=== PATIENT | male | born 1990 ===

== ENCOUNTER → 2023-03-10 | Outpatient (CLI) | payer SELFPAY | LOC: LAB 08:49 | PROVIDERS: ATTEND Surgery | DX: Z98.52 Vasectomy status (principal) | CPT/HCPCS: 89321 ==

== ENCOUNTER → 2023-07-11 | Outpatient (CLI) | payer SELFPAY | LOC: LAB 09:42 | PROVIDERS: ATTEND Urology | DX: Z30.2 Encounter for sterilization (principal) | CPT/HCPCS: 89321 ==